=== PATIENT | female | born 1945 | race Caucasian/White ===

== ENCOUNTER 2021-11-01 13:35 | Inpatient (IN) ==
[2021-11-01] MEDS ORDERED: *HR* OxyCODONE Immed Rel 5 MG TABLET PO PRN (18:02)
[2021-11-01] MEDS ORDERED: NON-FORMULARY MEDICATION 1 EACH EACH (Alendronate Sodium [Fosamax] 70 MG Tablet) PO SCH (18:15)
[2021-11-01] MEDS: Aspirin Enteric Coated 81 MG Tablet PO SCH (20:25)
[2021-11-01] MEDS: Multivit/Ca/Min/Fe/FA 1 TAB TABLET PO SCH (20:25)
[2021-11-01] MEDS: Melatonin 3 MG TABLET PO SCH (20:26)
[2021-11-02 04:22] LABS: Basophils # 0.1 K/mcL (0.0-0.2); Basophils % 0.8 %; Eosinophils # 0.2 K/mcL (0.0-0.6); Eosinophils % 2.9 %; Hematocrit 33.1 % (35.3-44.9); Hemoglobin 11.3 g/dL (11.5-15.4); Immature Granulocytes % 0.8 % (0-4); Lymphocytes # 2.6 K/mcL (0.6-4.6); Lymphocytes % 32.6 %; Mean Corpuscular HGB Conc 34.1 g/dL (31.6-35.5); Mean Corpuscular Hemoglobin 28.9 pg (28.0-33.3); Mean Corpuscular Volume 84.7 fL (83.0-100.0); Mean Platelet Volume 9.4 fL (9.4-12.4); Monocytes # 0.7 K/mcL (0.0-1.3); Monocytes % 8.7 %; Neutrophils # 4.3 K/mcL (1.6-8.9); Platelet Count 261 K/mcL (140-400); Red Blood Count 3.91 M/mcL (3.82-4.97); Red Cell Distribution Width 13.7 % (11.5-14.5); Segmented Neutrophils % 54.2 %; White Blood Count 7.8 K/mcL (4.3-11.1)
[2021-11-02 04:35] LABS: Calcium 8.9 mg/dL (8.6-10.3); Potassium 4.4 mEq/L (3.5-5.1)
[2021-11-02] MEDS: *HR* Enoxaparin 40 MG/0.4 ML SYRINGE SQ SCH (06:08)
[2021-11-02] MEDS: Multivit/Ca/Min/Fe/FA 1 TAB TABLET PO SCH ×2 (07:31→21:05)
[2021-11-02] MEDS: Ascorbic Acid 500 MG TABLET PO SCH ×2 (07:32→16:09)
[2021-11-02] MEDS: Aspirin Enteric Coated 81 MG Tablet PO SCH ×2 (07:32→21:04)
[2021-11-02] MEDS: Anastrozole 1 MG TABLET PO SCH (10:55)
[2021-11-02] MEDS: Pyridoxine (B-6) 50 MG TABLET PO SCH (10:56)
[2021-11-02] MEDS: Celecoxib 200 MG CAPSULE PO SCH (10:56)
[2021-11-02] MEDS: lisinopriL 20 MG TABLET PO SCH (10:56)
[2021-11-02] MEDS: Cholecalciferol (D-3) 1,000 UNIT (25MCG) TABLET PO SCH (10:56)
[2021-11-02] MEDS: Melatonin 3 MG TABLET PO SCH (21:05)
[2021-11-02] MEDS: Latanoprost 2.5 ML BOTTLE BOTH EYES SCH (21:08)
[2021-11-02 21:28] LABS: Bilirubin,Urine Negative (Negative); Blood,Urine Negative (Negative); Clarity,Urine Slightly Cloudy (Clear); Glucose,Urine (UA) Normal (Normal); Ketones,Urine Negative (Negative); Leukocyte Esterase,Urine Negative (Negative); Nitrite,Urine Negative (Negative); Protein,Urine Negative (Neg-Trace); Urobilinogen,Urine Normal (Normal)
[2021-11-02 21:35] LABS: Color,Urine LIGHT YELLOW (Yellow)
[2021-11-03] MEDS: *HR* Enoxaparin 40 MG/0.4 ML SYRINGE SQ SCH (04:06)
[2021-11-03] MEDS: Aspirin Enteric Coated 81 MG Tablet PO SCH ×2 (07:48→19:53)
[2021-11-03] MEDS: Ascorbic Acid 500 MG TABLET PO SCH ×2 (07:48→17:54)
[2021-11-03] MEDS: Celecoxib 200 MG CAPSULE PO SCH (07:48)
[2021-11-03] MEDS: Multivit/Ca/Min/Fe/FA 1 TAB TABLET PO SCH ×2 (07:49→19:52)
[2021-11-03] MEDS: Pyridoxine (B-6) 50 MG TABLET PO SCH (07:49)
[2021-11-03] MEDS: lisinopriL 20 MG TABLET PO SCH (07:49)
[2021-11-03] MEDS: Anastrozole 1 MG TABLET PO SCH (07:49)
[2021-11-03] MEDS: Cholecalciferol (D-3) 1,000 UNIT (25MCG) TABLET PO SCH (10:46)
[2021-11-03] MEDS: Melatonin 3 MG TABLET PO SCH (19:54)
[2021-11-03] MEDS: Latanoprost 2.5 ML BOTTLE BOTH EYES SCH (19:58)
[2021-11-04 07:14] VITALS: BP 139/76; PULSE 59; RESP 14; TEMP 97.8; O2SAT 98
[2021-11-04] MEDS: Cholecalciferol (D-3) 1,000 UNIT (25MCG) TABLET PO SCH (08:24)
[2021-11-04] MEDS: Multivit/Ca/Min/Fe/FA 1 TAB TABLET PO SCH (08:24)
[2021-11-04] MEDS: Aspirin Enteric Coated 81 MG Tablet PO SCH (08:24)
[2021-11-04] MEDS: Pyridoxine (B-6) 50 MG TABLET PO SCH (08:25)
[2021-11-04] MEDS: Celecoxib 200 MG CAPSULE PO SCH (08:25)
[2021-11-04] MEDS: Anastrozole 1 MG TABLET PO SCH (08:25)
[2021-11-04] MEDS: Ascorbic Acid 500 MG TABLET PO SCH (08:25)
[2021-11-04] MEDS: lisinopriL 20 MG TABLET PO SCH (08:25)
[2021-11-04] MEDS: *HR* Enoxaparin 40 MG/0.4 ML SYRINGE SQ SCH (08:28)
== END 2021-11-04 11:50 | disposition home or self-care (01) | DRG 561 ==
LOC: INPGRE 17:00
PROVIDERS: ADMIT Family Medicine; ATTEND Family Medicine